=== PATIENT | male | born 1940 | race Caucasian/White ===

== ENCOUNTER 2019-01-07 13:47 | Emergency (ER) | payer OTHER, MEDICARE ==
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
[2019-01-07] MEDS ORDERED: LET GEL TOPICAL 1 EA SYR TP ONE (14:27)
[2019-01-07 17:25] VITALS: BP 142/85
== END 2019-01-07 17:25 | disposition home or self-care (01) ==
PROC: 0HQFXZZ Repair Right Hand Skin, External Approach (ICD-10-PCS; principal; 2019-01-07)
DX: S61.021A Laceration with foreign body of right thumb without damage to nail, initial encounter (principal); S63.621A Sprain of interphalangeal joint of right thumb, initial encounter; I25.10 Atherosclerotic heart disease of native coronary artery without angina pectoris; V18.0XXA Pedal cycle driver injured in noncollision transport accident in nontraffic accident, initial encounter; Y93.55 Activity, bike riding; Y92.480 Sidewalk as the place of occurrence of the external cause; Z95.5 Presence of coronary angioplasty implant and graft
CPT/HCPCS: 12002; 73120; 73140; 99283; L3925